=== PATIENT | female | born 1965 | race Caucasian/White ===

== ENCOUNTER 2017-10-15 14:03 | Inpatient (IN) | payer OTHER ==
[~2017-10-15] VITALS: Ht 157.5 cm; Wt 54.2 kg
--- NOTE | ~2017-10-15 | HC ---
[facility] [place] [address] CONSULTATION Name: JOHNNIE MORGAN Room #: 201-P ADM IN M.R.#: [id number] Admission: 10/15/17 Attend Phys: Michael Gray MD Discharge: Date of : 69 Report #: [id number] THIS REPORT FOR: //name// CC: Esau Lopez MD [facility] Michael Ferrara REASON FOR CONSULTATION: The patient is a 51-year-old woman who was transferred to [facility] with chest pain and possible acute coronary event. HISTORY OF PRESENT ILLNESS: This 51-year-old woman has a longstanding history of chronic obstructive pulmonary disease, which has been problematic for a number of years. She also reports she had an episode of congestive heart failure associated with exacerbation of COPD. She was admitted to [facility] [place] for chest pain, shortness of breath as well as sinus tachycardia. She had an elevated troponin and D-dimer and was placed on heparin drip at time of transfer. She was admitted to [facility] and was seen by Dr. Esau Lopez earlier today. His dictated consult is not available yet. However, I spoke with the nurse and she tells me that he reported to her that he does not believe this is a cardiac event and that he consider outpatient stress testing, but no need for further cardiac intervention at this point in time. The patient reports that her chest pain initially was substernal. She also reports that the chest pain is not completely resolved, but she is now complaining more of epigastric pain. She reported the pain has developed over the past several days. She reports a previous history of ulcer disease. She has not had previous GI bleeding. She does use ibuprofen, typically 1-2 per day. From what I can tell, she does not use a PPI, but she does use ranitidine daily. She had several episodes of emesis during the night and was reported that she had coffee ground emesis. She does have black stools and has been on iron therapy for at least a month. She was told she might be anemic, but she is not sure. She has never had a colonoscopy. Review of records revealed she has been anemic in the past, in 2009, she had a hemoglobin as low as 9.2. However, in July 2014, it was up to 13.9, but later dropped again. In the computer system here, her hemoglobins have generally been in the 11 range. MCV has shown a downward trend and is 80.2 today. White count is up to 17,400. PAST MEDICAL HISTORY: Chronic obstructive pulmonary disease, she has been a longtime cigarette smoker, she had been smoking up until the time she was hospitalized; however, she said with the this time, she is going to quit. She has had degenerative joint disease and she has been on narcotics for many years. She takes about four 10/325 Percocet daily. She has been treated for allergic asthma. She has had peptic ulcer disease. PTSD and depression. PAST SURGICAL HISTORY: , tubal ligation, cholecystectomy, neck [facility] [address] [place] [address] CONSULTATION Name: JOHNNIE MORGAN Room #: 201-P [facility] IN M.R.#: [id number] Admission: 10/15/17 Attend Phys: Michael Gray MD Discharge: Date of : 69 Report #: [id number] surgery, back surgery with cage procedure. ALLERGIES: CONTRAST DYE, NORFLEX, ROCEPHIN, BACTRIM, THEOPHYLLINE, SULFA CONTAINING ANTIBIOTICS, SHELLFISH, CORN, and APPLE. USUAL HOME MEDICINES: Include ProAir HFA 2 puffs every 4 hours, Fosamax 70 mg weekly, alprazolam 1 mg 3 times daily, Claritin 5 mg daily, transdermal nicotine patch 40 mg daily, Patanol one drop daily as needed, ondansetron 4 mg every 8 hours as needed, Percocet 10/325 one every 6 hours, Spiriva handheld inhaler, and she also takes ranitidine 150 mg twice daily. FAMILY HISTORY: No family history of colon cancer. SOCIAL HISTORY: Long-term cigarette smoker. She is single and has one child, who is in good health. She denies alcohol use. REVIEW OF SYSTEMS: GENERAL: No recent change in weight, fever, or chills. CENTRAL NERVOUS SYSTEM: No focal weakness, numbness, loss of conscious, seizures, or strokes. ENT: No change in vision, hearing or sores in the mouth. PULMONARY: Chronic lung disease with cough. No history of tuberculosis. CARDIOVASCULAR: She has had congestive heart failure in the past. GASTROINTESTINAL: Recent nausea, vomiting, and hematemesis. She had been on heparin drip. She does take nonsteroidals. She has also been on Fosamax. GENITOURINARY: Without dysuria, pyuria, kidney stones, kidney tract infections. MUSCULOSKELETAL: Chronic back and neck pain. SKIN: Without rashes. PSYCHIATRIC: Treated for depression and PTSD. ENDOCRINE: Not aware of diabetes or thyroid problems. HEMATOLOGIC: Hematemesis on admission. No malignancies. PHYSICAL EXAMINATION: GENERAL: The patient is a well-developed, well-nourished, somewhat anxious woman, in no acute distress. She is currently on 1-2 liters of oxygen. VITAL SIGNS: Blood pressure 125/99. HEENT: Anicteric. Pupils are equal and round. Oropharynx clear. NECK: Supple. CHEST: Clear. PULMONARY: Chest with good breath sounds throughout. Occasional slight expiratory wheeze. Breath sounds are equal. CARDIOVASCULAR: Regular rate and rhythm, normal S1 and S2. ABDOMEN: Mildly distended, soft. Moderate epigastric tenderness to deep palpation. No rebound or rigidity. She has benign abdomen. No mass lesions noted. RECTAL: Not done. [facility] [address] [place] [address] CONSULTATION Name: JOHNNIE MORGAN Room #: 201-P ADM IN [facility].#: [id number] Admission: 10/15/17 Attend Phys: Michael Gray MD Discharge: Date of : 69 Report #: [id number] EXTREMITIES: Without cyanosis, clubbing, or edema. NEUROLOGIC: Oriented to person, place, and time. Moves all 4 extremities well. LABORATORY DATA: White count was 13,000 yesterday, up to 17.4 today. Hemoglobin stable at 11.4. INR 1, PTT of 56.6, she had been on heparin. Electrolytes: Potassium diminished at 3.2, BUN of 8, creatinine is 0.6, calcium 81, glucose 176. Bilirubin 0.1, AST and ALT are normal, alkaline phosphatase slightly elevated at 145. Troponin 1.01. BNP of 212. RADIOLOGIC: She had a CT of the chest with PE protocol, mild patchy areas of infiltrate scattered throughout the periphery of the lung, no filling defects, small mediastinal adenopathy, multiple compression fractures in the spine with previous vertebroplasty, previous cholecystectomy, there is some subcutaneous gas and edema in the right lower neck and anterior chest wall. ASSESSMENT: 1. Atypical chest pain. 2. Hematemesis. 3. Nausea and vomiting. 4. Epigastric pain. 5. History of peptic ulcer disease. 6. Use of nonsteroidals. 7. Mild anemia, chronic. 8. Chronic obstructive pulmonary disease. 9. Chronic pain, daily use of narcotics. 10. Depression and post-traumatic stress disorder. COMMENT: Atypical chest pain. She does have abdominal pain and does use nonsteroidals and has history of disease. No further intervention planned by cardiovascular service while here in the hospital. She had hematemesis while on heparin. She has not had significant drop in hemoglobin. Pulmonary issues noted. RECOMMENDATIONS: 1. PPI. 2. Consider upper endoscopy in the morning depending on pulmonary status. 3. Chest x-ray regarding subcutaneous emphysema. 4. Monitor hemoglobin. <ELECTRONICALLY SIGNED> By: Michael Ackerman MD 10/19/17 0738 1155 1440 Michael Akcerman MD /nt
--- NOTE | ~2017-10-15 | HC ---
[facility] [address] [address] CONSULTATION Name: JOHNNIE MORGAN Room #: 201-P [facility] IN M.R.#: [id number] Admission: 10/15/17 Attend Phys: Michael Gray MD Discharge: Date of : 69 Report #: [id number] THIS REPORT FOR: //name// CC: Michael Ferrara REASON FOR CONSULTATION: Tachycardia and elevated troponin. HISTORY OF PRESENT ILLNESS: The patient is a 51-year-old woman with chronic pain syndrome, recent back surgery and 3 days of fevers, chills, upper back and chest pain and associated with nausea, vomiting, and diarrhea. She has been out of her OxyContin 4-5 days and thinks that she is going through narcotic withdrawal. Since her stay, she has not been able to keep any medications or fluids down. She had intractable nausea and vomiting. She has had subjective fevers and chills. In this setting, a troponin was ordered and mildly elevated at 1.0. I was asked to see her in this regard. Her chest pain comes from the mid portion of the back at the site of her recent back surgery. She denies orthopnea or paroxysmal nocturnal dyspnea. She has audible wheezing. She does see Dr. Garcia for her significant COPD. She was placed on aspirin and intravenous heparin, although with what appears to be coffee-ground emesis, her anticoagulant was recently discontinued. ALLERGIES: Include SHELLFISH, SULFA, THEOPHYLLINE, BACTRIM, ROCEPHIN, and IVP DYE. MEDICATIONS: Include alprazolam, oxycodone, albuterol, and nicotine patch. PAST MEDICAL HISTORY: Medical records have been reviewed and include a history of cholecystectomy, tubal ligation, appendectomy, recent back surgery, remote vertebroplasty, and COPD. SOCIAL HISTORY: Smoker, the past 30 years, 1-pack a day. FAMILY HISTORY: Notable for premature coronary artery disease. REVIEW OF SYSTEMS: All systems negative except as that noted above. PHYSICAL EXAMINATION: GENERAL: Reveals a pleasant woman, she is alert, she describes nausea, abdominal pain, and wheezing. VITAL SIGNS: Blood pressure is 137/104, heart rate of 125 and regular, she is afebrile at 98.2 degrees, 5 feet 2 inches tall, and 123 pounds. HEENT: There are neither xanthelasma, subcutaneous xanthomata, oral mucosal or digital cyanosis or kyphoscoliosis present. CHEST: Reveals diffuse expiratory wheezes. CARDIAC: Reveals tachycardic, regular rate and rhythm with normal S1, S2. ABDOMEN: Soft, distended, no rebound. [address] [address] CONSULTATION Name: JOHNNIE MORGAN Room #: 201-P [facility] IN M.R.#: [id number] Admission: 10/15/17 Attend Phys: Michael Gray MD Discharge: Date of : 69 Report #: [id number] EXTREMITIES: Without cyanosis, clubbing, or edema. Radial pulses are 2+. NEUROLOGIC: She is alert with a nonfocal exam. LABORATORY DATA: Sodium 137, potassium 3.2, creatinine 0.6, and glucose 142. Troponin 1.0. White count 17,000, hemoglobin 11, hematocrit 35, and platelet count 360. Chest x-ray demonstrates patchy area of minor infiltrate, no pulmonary emboli, multiple compression fractures seen, extensive surgical changes of the spine. EKG, sinus tachycardia, poor septal R-wave progression, nonspecific T-wave abnormality. IMPRESSION: 1. Chronic obstructive pulmonary disease exacerbation. 2. Nausea, vomiting, diarrhea; abdominal pain, possible hematemesis. 3. Chronic back pain, probable narcotic withdrawal. 4. Small troponin elevation, suspect type 2 myocardial infarction (supply demand mismatch) in the setting of chronic obstructive pulmonary disease, narcotic withdrawal, gastrointestinal bleeding, febrile illness. RECOMMENDATIONS: 1. IV beta blockade. 2. Stop anticoagulants. Medical therapy for coronary artery disease. In the absence of angina or ischemic symptoms, I would consider outpatient stress testing, at this point the antiplatelets and anticoagulants remain relatively contraindicated. I have discussed these issues with the patient. Thank you for asking me to participate in her care. <ELECTRONICALLY SIGNED> By: Esau Lopez MD, FACC 10/18/17 0853 0836 1138 Esau Lopez MD, FACC /nt
--- NOTE | ~2017-10-15 | P ---
[facility] [place] [address] [address] [place] [address] PROCEDURE REPORT Name: JOHNNIE MORGAN Room #: 201-P [facility] IN .R.#: [id number] Admission: 10/15/17 Attend Phys: Michael Gray MD Discharge: Date of : 69 Report #: [id number] THIS REPORT FOR: //name// CC: Inpatient Chart Michael Ferrara MD PROCEDURE: EGD with biopsies and brushings. Patient of Dr. Gray and Dr. Razia Ferrara. INDICATION FOR PROCEDURE: This patient has had a productive cough and chest pain, substernal, that is noncardiac in nature. She has been exposed to her mother recently who had a cold and chills and fevers and the patient then developed chills and fevers as well. She complains of uncontrolled gastroesophageal reflux symptoms while taking Zantac 150 mg p.o. b.i.d. She has had no appetite for several days and has not eaten. She had diarrhea prior to admission, but that apparently stopped. She had an episode of some melanotic stools, but has been taking iron sulfate. She complained of nausea and vomiting for the past several days along with the substernal chest pain. She has diffuse upper abdominal tenderness as well. We are asked to evaluate her for possible noncardiac etiologies of her chest pain. Informed consent for this procedure was obtained prior to the administration of any medication. The risks of the procedure, which include bleeding, perforation, infection, complications of sedation and the possibility I could miss something have been explained to the patient and she has indicated her consent by signing. Propofol was slowly titrated before and during this procedure for patient comfort by the Anesthesia Service. The Welcaren upper videoscope was introduced through the upper esophageal sphincter and advanced under direct visualization to the descending duodenum. Findings are noted on withdrawal of the scope. The duodenal mucosa appears normal throughout its entirety. Pylorus, normal mucosa. Antrum, some mild erythema is noted in the antrum of the stomach. Body, normal mucosa. Cardia and fundus, normal mucosa. Retroflex view did not reveal any abnormalities. The scope was withdrawn to the esophagus. The Z-line appears to be appropriately located at the top of the gastric folds and appears normal; however, there is an exudative esophagitis noted through almost the entire esophagus except for the proximal few centimeters. Brushings were obtained for CORA prep from this exudative material and biopsies were obtained x 3 from the distal esophagus to evaluate for possible Lisha, possible Guerrero's ectopic mucosa, possible eosinophilic esophagitis and other abnormalities that may be visible microscopically. Most proximal few centimeters of the esophagus appeared normal. The scope was withdrawn. The patient went to the [address] [address] PROCEDURE REPORT Name: JOHNNIE MORGAN Room #: 201-P [facility] IN M.R.#: [id number] Admission: 10/15/17 Attend Phys: Michael Gray MD Discharge: Date of : 69 Report #: [id number] area in stable condition. She tolerated the procedure well. IMPRESSION: 1. Mild antral erythema. 2. Diffuse exudative esophagitis biopsied and brushed as above. RECOMMENDATIONS: To await the biopsies and brushings. We will start her on Protonix 40 mg 1 p.o. q. 12 hours. We will start her on a soft diet as tolerated. I note that she has had several vertebral fractures on CT scan that was done recently. I do not know if this is secondary to osteoporosis or if perhaps she has a metastatic type of disease process, but further workup of these areas will probably be necessary. Thank you very much once again for allowing me to participate in her care, Dr. Gray. <ELECTRONICALLY SIGNED> By: Jessica Fabian DO 10/18/17 1353 1109 1214 Jessica Fabian DO /nt
--- NOTE | ~2017-10-15 | EKG ---
[place] [address] [facility] [place] [employer] [place] [address] ELECTROCARDIOGRAM REPORT Name: JOHNNIE MORGAN Room #: 201-P ADM IN M.R.#: [id number] Admission: 10/15/17 Attend Phys: Michael Gray MD Discharge: Date of : 69 Report #: [id number] THIS REPORT FOR: //name// [facility] Test Date: 2017-10-17 Test Time: 06:05:28 Pat Name: JOHNNIE MORGAN Department: Room: 201 P Gender: F Loss Prevention Specialist: JONA : 1965 Requested By: Esau Lopez Order Number: [id number] MD: Esau Lopez Measurements Intervals [place] Rate: 102 P: 46 WV: 135 QRS: 71 QRSD: 66 T: 45 QT: 401 QTc: 523 Interpretive Statements Sinus tachycardia Low voltage, extremity leads Anteroseptal infarct, old Prolonged QT interval Compared to ECG 08/17/2014 07:55:32 Prolonged QT interval now present Electronically Signed On 10-17-2017 9:30:27 MANAGEMENT ACCOUNTS MANAGER by Esau Lopez [email or web address] <ELECTRONICALLY SIGNED> By: Esau Lopez MD, [facility] 10/17/17 6530 4 Esau Lopez MD, [facility] /EPI
--- NOTE | ~2017-10-15 | S ---
[facility] [address] [place] [address] SURGICAL PATH RPT PROCEDURE Name: LAYLA BAILEY Room #: 201-P ADM IN M.R.#: [id number] Admission: 10/15/17 Date of : 69 Discharge: Report #: [id number] Path Case #: [id number] PATHOLOGY REPORT COLLECTION DATE: 10/18/2017 RECEIVED DATE: 10/18/2017 SUBMITTING PHYS: Dr. Jessica Fabian OTHER PHYS: Dr. Michael Ferrara ADDENDUM REPORT (Order Date: 10/20/2017 09:58) ADDENDUM COMMENT: A properly controlled special stain is performed. GMS (block A1) - Positive for very rare yeast and pseudohyphae amongst the necroinflammatory debris. The final diagnosis remains unchanged. (CLW:pit; 10/20/2017) Professional services performed by [facility] at [facility] [address], [place] [address] Technical services performed by [facility] at [address] [place] [address], [address] [place] [address]. ELECTRONICALLY SIGNED BY: Za Arguelles M.D. DATE/TIME:10/20/2017 14:52 SPECIMEN(S) RECEIVED: A.Bx esophagus * * * * * * * * * * * * FINAL DIAGNOSIS: "BX esophagus", biopsy: - Predominantly necroinflammatory debris consistent with ulcer bed. - Minimal / scant viable squamous epithelium with reactive changes; no glandular epithelium, intestinal metaplasia or dysplasia seen. (see comment) (CLW:rian; 10/19/2017) COMMENT: No intraepithelial eosinophils are identified within the limited, scant viable squamous epithelium. A fungal stain is pending and will be reported as an addendum. (CLW:rian; 10/19/2017) PATHOLOGIST: Za Arguelles M.D. [facility] [address] [place] [address] SURGICAL PATH RPT PROCEDURE Name: LAYLA BAILEY Room #: 201-P [facility] IN .R.#: [id number] Admission: 10/15/17 Date of : 69 Discharge: Report #: [id number] Path Case #: [id number] REPORT ELECTRONICALLY SIGNED BY: Za Arguelles M.D. DATE/TIME: 10/19/2017 15:16 * * * * * * * * * * * * GROSS PATHOLOGY: Received in formalin labeled "Layla Bailey, BX esophagus," are 2 segments of gaitan soft tissue measuring 0.7 x 0.3 x 0.2 cm in aggregate dimensions and ranging from 0.3 to 0.4 cm in maximum dimension. The specimen is submitted entirely in cassette A1. (TSD; 10/18/2017) CLINICAL HISTORY: Pre-OP DX: Abdominal pain Post-OP DX: Ulcerated esophagitis Rule out ulcer and eosinophilic esophagitis INITIAL CPT CODE(S): A; 26436, 15138 Professional services performed by [facility] at [facility] [employer] [address], [place] [address] Technical services performed by [facility] at [address] [place] [address], [address], [place] [address]. [facility] [address] [place] [address] PHONE: [phone] DIRECTOR: Richard Clinton M.D. * * * END OF REPORT * * *
--- NOTE | ~2017-10-15 | EKG ---
[address] [place] [address] ELECTROCARDIOGRAM REPORT Name: JOHNNIE MORGAN Room #: 201-P ADM IN M.R.#: [id number] Admission: 10/15/17 Attend Phys: Michael Gray MD Discharge: Date of : 69 Report #: [id number] THIS REPORT FOR: //name// [facility] Test Date: 2017-10-18 Test Time: 08:51:34 Pat Name: JOHNNIE MORGAN Department: Room: 201 P Gender: F Cotton Cleaner: Nik BURGESS : 1965 Requested By: Esau Lopez Order Number: [id number] MD: Naeem Justin Measurements Intervals [place] Rate: 92 P: 44 [place]: 136 QRS: 77 QRSD: 78 T: QT: 499 QTc: 618 Interpretive Statements Sinus rhythm Low voltage, extremity leads Nonspecific T abnormalities, lateral leads Compared to ECG 10/17/2017 06:05:28 T-wave abnormality now present Sinus tachycardia no longer present Myocardial infarct finding no longer present Electronically Signed On 10-18-2017 15:08:36 SPINNING MACHINE OPERATOR by Naeem Justin [email or web address] <ELECTRONICALLY SIGNED> By: Naeem Justin MD 10/18/17 1508 0851 0851 Naeem Justin MD /EPI
--- NOTE | ~2017-10-15 | HC ---
[facility] [place] [address] [place] [address] CONSULTATION Name: JOHNNIE MORGAN Room #: 201-P [facility] IN M.R.#: [id number] Admission: 10/15/17 Attend Phys: Michael Gray MD Discharge: 10/20/17 Date of : 69 Report #: [id number] THIS REPORT FOR: //name// CC: Michael Gray MD [facility] DATE OF SERVICE: 10/16/2017 REFERRING PROVIDER: Michael Gray MD REASON FOR CONSULTATION: Pulmonary infiltrates, hypoxemia and chest pain. HISTORY OF PRESENT ILLNESS: Our group was asked to see the patient in consultation while hospitalized at [facility]. A 51-year-old woman with past medical history significant for severe COPD and ongoing tobacco abuse, had been having some increasing shortness of breath, tachycardia, cough productive of white sputum, fevers and chills at home, presented to the Emergency Department due to chest pains. The patient ran out some of her pain medications 2 days ago. The patient started developing worsening chest pain and elevated D-dimer and subsequently transferred here for further workup and management. CT scan of the chest PE protocol, did not show any pulmonary emboli, but did show predominantly upper lobe, left greater than right infiltrates consistent with multilobar pneumonia. The patient is currently resting in bed on low flow supplemental oxygen. The patient also has been complaining of epigastric pain and has a history of peptic ulcer disease, undergoing evaluation by Gastroenterology. ALLERGIES: INCLUDE IV CONTRAST, ORPHENADRINE. PAST MEDICAL HISTORY: 1. Severe COPD requiring low flow supplemental oxygen. 2. Ongoing tobacco abuse. 3. Chronic pain. 4. Recent back surgery with dipika placement. 5. Severe osteoporosis. OUTPATIENT MEDICATIONS: Include Claritin, Percocet, Xanax, Spiriva, albuterol inhaler, nicotine patch, Symbicort. SOCIAL HISTORY: The patient is an active smoker. No significant alcohol consumption. Disabled. FAMILY HISTORY: Negative for any significant pulmonary disease. REVIEW OF SYSTEMS: [facility] [address] [place] [address] CONSULTATION Name: JOHNNIE MORGAN Room #: 201-P [facility] IN M.R.#: [id number] Admission: 10/15/17 Attend Phys: Michael Gray MD Discharge: 10/20/17 Date of : 69 Report #: [id number] CONSTITUTIONAL: No fever noted, but chills and sweats noted. ENT: No upper respiratory congestion, rhinorrhea or dysphagia. CARDIOVASCULAR: Chest pain as described in HPI. GASTROINTESTINAL: As described in HPI, some nausea and inability to take oral intake. GENITOURINARY: No dysuria, no frequency or hematuria. INTEGUMENT: Denies any rash. MUSCULOSKELETAL: No new joint pains or swelling. PHYSICAL EXAMINATION: VITAL SIGNS: Afebrile, pulse 110s, respiratory rate 20, blood pressure 123/89, oxygen saturation 93% on 2.5 liters nasal cannula. GENERAL: This is a middle-aged woman in no distress. ENT: Clear oropharynx. No thrush. NECK: Supple, no lymphadenopathy. LUNGS: Some inspiratory crackles noted bilaterally with expiratory wheezes. CARDIOVASCULAR: Heart was tachycardic, but regular. No murmurs noted. ABDOMEN: Soft, nontender, no masses, no hepatosplenomegaly noted. EXTREMITIES: Warm, 2+ pulses, no edema. INTEGUMENT: No rash was seen. LABORATORY DATA: Chemistry profile normal except for mildly elevated glucose 176. Alkaline phosphatase mildly elevated at 145. Troponin 1.01. White blood cell count 17,000; hemoglobin 11; hematocrit 35; platelet count 360. TSH 1.57. No arterial blood gas. Chest CT as described in HPI. IMPRESSION: 1. Multilobar pneumonia consistent with community-acquired pneumonia; however, given recent hospital stay, some concern for healthcare-associated organisms should be considered, possibly influenza. 2. Pmvmu-ay-jpbnnmb hypoxemic respiratory failure. 3. Chronic obstructive pulmonary disease with acute exacerbation. 4. Ongoing tobacco abuse. 5. Chest pain, likely related to pneumonia, possibly due to gastrointestinal symptoms with prior history of peptic ulcer disease. 6. Leukocytosis. SUGGESTIONS: 1. Continue with Levaquin. 2. Systemic steroid with taper. 3. Continue with bronchodilators. 4. Sputum and blood culture. 5. Nasal swab for respiratory viral panel and influenza screen. 6. GI evaluation. [address] [address] CONSULTATION Name: JOHNNIE MORGAN Room #: 201-P [facility] IN M.R.#: [id number] Admission: 10/15/17 Attend Phys: Michael Gray MD Discharge: 10/20/17 Date of : 69 Report #: [id number] 7. Continuous oximetry. 8. Additional recommendations to follow. We will follow along with you. <ELECTRONICALLY SIGNED> By: Rigoberto Hernandez MD 10/20/17 1726 1405 1742 Rigoberto Hernandez MD /nt
--- NOTE | ~2017-10-15 | EKG ---
[address] [place] [address] ELECTROCARDIOGRAM REPORT Name: JOHNNIE MORGAN Room #: 201-P ADM IN M.R.#: [id number] Admission: 10/15/17 Attend Phys: Michael Gray MD Discharge: Date of : 69 Report #: [id number] THIS REPORT FOR: //name// [facility] Test Date: 2017-10-18 Test Time: 15:01:45 Pat Name: JOHNNIE MORGAN Department: Room: 201 P Gender: F Airplane Mechanic: Barb GARZA : 1965 Requested By: Petrona Crystal Order Number: [id number] MD: Naeem Justin Measurements Intervals Cameron Rate: 103 P: 40 CA: 135 QRS: 79 QRSD: 88 T: -27 QT: 364 QTc: 477 Interpretive Statements Sinus tachycardia Low voltage, extremity leads Nonspecific T abnormalities, lateral leads Compared to ECG 10/17/2017 06:05:28 T-wave abnormality now present Myocardial infarct finding no longer present Prolonged QT interval no longer present Electronically Signed On 10-18-2017 16:21:32 DIRECTOR OF EMAIL MARKETING by Naeem Justin [email or web address] <ELECTRONICALLY SIGNED> By: Naeem Justin MD 10/18/17 1621 1501 1501 Naeem Justin MD /EPI
--- NOTE | ~2017-10-15 | CATHLAB ---
[facility] [address] [place] [address] INVASIVE PROCEDURE REPORT Name: JOHNNIE MORGAN Room #: 201-P [facility] IN ..#: [id number] Admission: 10/15/17 Attend Phys: Michael Gray, Discharge: Date of : 69 Date of Service: 10/19/17 1122 Report #: [id number] THIS REPORT FOR: //name// APPROVED REPORT Patient Details Patient Status: In-Patient Room #: The patient is a 51 year-old female Event Personnel Esau Lopez Policy Loan Calculator, Deena Shelton, Elizabeth Vasquez Penny, Wes RN, Luzma Guerrero RN clothes ironer Performed Art Access - R femoral artery* Left Heart Cath w/or w/o Coronaries [id number] [facility] [address] Initial Mod Sed Same Phys/QHP Gr5y [id number] Hemostasis w/ Mynx Indication Abnormal ECG, Non-STEMI , Cardiomyopathy Procedure Narrative The patient was brought urgently to the Cardiac Catheterization Laboratory and was prepped and draped in a sterile manner. The Left Groin^ was infiltrated with 1% Lidocaine subcutaneous anesthesia. A PINNACLE 6FR Sheath #[id number] sheath was inserted into the RFA^. Coronary angiography was performed using coronary diagnostic catheters. The right coronary system was accessed and visualized with a JR 4 catheter. The left coronary system was accessed and visualized with a JL 4 catheter. The left ventricle was accessed and visualized with a Pigtail catheter. Left ventricular/Aortic Valve gradient assessed via catheter pullback. Left ventriculogram was performed in RDZ projection. Closure device was deployed with a 6 Fr . The patient tolerated the procedure well and there were no complications associated with the procedure. There was no hematoma. Intraoperative Conscious Sedation Sedation start time: 07:42 Case end Time: 07:53 Fentanyl 25.0 mcg Versed 1.0 mg Fluoro Time: 1.19 minutes Dose: DAP 1754.00 cGycm2 215 mGy Contrast Type and Amount: Visipaque 85 ml [facility] [address] [place] [address] INVASIVE PROCEDURE REPORT Name: JOHNNIE MORGAN Room #: 201-P [facility] IN ..#: [id number] Admission: 10/15/17 Attend Phys: Michael Gray, Discharge: Date of : 69 Date of Service: 10/19/17 1122 Report #: [id number] Diagnostic Cath Left Main Normal LAD Normal Diagonal 1 Large single diagonal branch, angiographically normal Circumflex Large, angiographically normal Right Coronary Dominant, angiographically normal Left Ventriculography The left ventricle is moderately dilated in size with contractility. The left ventricular ejection fraction is estimated to be 30%. Left ventricular wall motion abnormalities are present. There is no mitral insufficiency. Apical ballooning, best contractile function at base of heart. Findings consistent with Takutsobu cardiomyopathy Hemodynamics The aortic pressure is 141/83 mmHg with a mean of 94 mmHg. The left ventricular pressure is 115/16 mmHg with a mean of mmHg. The left ventricular end diastolic pressure is 32 mmHg. Conclusion 1. Moderately severe LV dysfunction with apical ballooning consistent with Takutsubo cardiomyopathy. EF 30% 2. Normal coronary vasculature, right dominant circulation Recommendations Smoking Cessation Aggressive Medical Therapy Medications Administered SUSAN Inhibitor (any) Beta Layla (any) Statin (any) Cardiac Rehabilitation Referral Smoking Cessation <ELECTRONICALLY SIGNED> By: Esau Lopez MD, FACC 10/19/17 112 21 21 Esau Lopez MD, FACC /INF
--- NOTE | ~2017-10-15 | CNG ---
[facility] [address] [place] [address] CYTO-NONGYN REPORT PROCEDURE Name: LAYLA BAILEY Room #: 201-P DIS IN M.R.#: [id number] Admission: 10/15/17 Date of : 69 Discharge: 10/20/17 Report #: [id number] Path Case #: [id number] CYTOPATHOLOGY REPORT COLLECTION DATE: 10/18/2017 RECEIVED DATE: 10/18/2017 SUBMITTING PHYS: Dr. Jessica Fabian OTHER PHYS: Dr. Michael Gray ADDENDUM REPORT (Order Date: 10/20/2017 15:25) ADDENDUM COMMENT: A properly controlled special stain is performed on a ThinPrep slide. GMS (ThinPrep) - Very rare yeast identified The final diagnosis remains unchanged. (CLW:rian; 10/20/2017) Professional services performed by [facility] at [facility] [address] [place] [address] Technical services performed by [facility] at [address] [place] [address], [address] [place] [address]. ELECTRONICALLY SIGNED BY: Za Arguelles M.D. DATE/TIME:10/21/2017 14:39 CLINICAL HISTORY: Abdominal pain, ulcerated esophagitis. See also [id number]. SPECIMEN(S) RECEIVED: A.Esophageal brushing * * * * * * * * * * * * FINAL DIAGNOSIS: Esophageal brushing: - No malignant epithelial cells identified. -Squamous epithelial cells identified in a marked acute inflammatory cell background. COMMENT: A fungal stain is pending and will be reported as addendum. Please see also the esophageal biopsy ([id number]). Clinical and endoscopic correlation is recommended. (CLW:; 10/19/2017) PATHOLOGIST: Za Arguelles M.D. REPORT ELECTRONICALLY SIGNED BY: Za Arguelles M.D. DATE/TIME: 10/19/2017 15:12 * * * * * * * * * * * * [facility] [place] [address] CYTO-NONGYN REPORT PROCEDURE Name: LAYLA BAILEY Room #: 201-P [facility] IN M.R.#: [id number] Admission: 10/15/17 Date of : 69 Discharge: 10/20/17 Report #: [id number] Path Case #: [id number] GROSS PATHOLOGY: A. Esophageal brushing: The specimen is labeled "Layla Bailey" and consists of a brush tip in fixative. One ThinPrep slide was prepared. (clt 10.18.2017) EXTRACT WRINGER(S): JOSE M Gee([facility]) INITIAL CPT CODE(S): A; 95879, 17125 Professional services performed by [facility] at [address] , [place] [address] Technical services performed by [facility] at [address] [place] [address], [address], [place] [address]. CC: Dr. Josias Randle [facility] [address], [address] [place] [address] PHONE: [phone] DIRECTOR: Richard Clinton M.D. * * * END OF REPORT * * *
--- NOTE | ~2017-10-15 | 2DMMODE ---
[facility] [address] [place] [address] 2 D/M-MODE ECHOCARDIOGRAM Name: JOHNNIE MORGAN Room #: 201-P [facility] IN [facility].#: [id number] Admission: 10/15/17 Attend Phys: Michael Gray, Discharge: Date of : 69 Date of Service: 10/17/17 1144 Report #: [id number] THIS REPORT FOR: //name// APPROVED REPORT Study performed: 10/17/2017 11:12:14 EXAM: Comprehensive 2D, Doppler, and color-flow Echocardiogram Patient Location: Bedside Room #: 210 Status: routine BSA: 1.57 HR: 74 bpm BP: 135/59 mmHg Rhythm: NSR Other Information Study Quality: Good Indications Chest pain. Afib. CABG. 2D Dimensions RVDd: 31.67 mm LVEF(%): 35.92 (>50%) IVSd: 7.92 (7-11mm) LVOT Diam: 18.71 (18-24mm) LVDd: 45.92 mm PWd: 7.55 (7-11mm) Ascending Ao: 29.65 (22-36mm) LVDs: 38.04 (25-40mm) Aortic Root: 30.37 mm Butler's LVEF: 35.92 % Volumes Left Atrial Volume (Systole) Single Plane 4CH: 28.23 mL Single Plane 2CH: 38.67 mL Aortic Valve AoV Peak Barron.: 1.07 m/s AO Peak Gr.: 4.54 mmHg LVOT Max P.89 mmHg LVOT Max V: 0.85 m/s AUBREY Vmax: 2.19 cm2 Mitral Valve E/A Ratio: 1.5 MV Decel. Time: 95.41 ms MV E Max Barron.: 0.98 m/s [facility] [employer] [place] [address] 2 D/M-MODE ECHOCARDIOGRAM Name: CATHYJOHNNIE Room #: 201-P [facility] IN .R.#: [id number] Admission: 10/15/17 Attend Phys: Michael Gray, Discharge: Date of : 69 Date of Service: 10/17/17 1144 Report #: [id number] A Barron.: 0.66 m/s MV PHT: 27.67 ms IVRT: 58.82 ms Pulmonary Valve PV Peak Barron.: 0.55 m/s PV Peak Gr.: 1.21 mmHg Pulmonary Vein P Vein S: 0.63 m/s P Vein A: 0.48 m/s P Vein D: 0.66 m/s P Vein S/D Ratio: 0.95 Tricuspid Valve TR Peak Barron.: 2.88 m/s RAP Estimate: 5.00 mmHg TR Peak Gr.: 33.20 mmHg PA Pressure: 38.00 mmHg Left Ventricle The left ventricle is normal size. There is normal left ventricular wall thickness. Left ventricular systolic function is severely decreased. Best contractile function occurred at base of heart LVEF is 30%. The left ventricular diastolic function is normal. Right Ventricle The right ventricle is normal size. The right ventricular systolic function is low normal. Atria The left atrium size is normal. The right atrium size is normal. Aortic Valve The aortic valve is normal in structure. No aortic regurgitation is present. There is no aortic valvular stenosis. Mitral Valve The mitral valve is normal in structure. Moderate mitral regurgitation. Tricuspid Valve The tricuspid valve is normal in structure. Mild tricuspid regurgitation. Estimated PAP is 35-40mmHg. Pulmonic Valve The pulmonary valve is normal in structure. Trace pulmonic regurgitation. [facility] [address] [place] [address] 2 D/M-MODE ECHOCARDIOGRAM Name: JOHNNIE MORGAN Room #: 201-P [facility] IN .R.#: [id number] Admission: 10/15/17 Attend Phys: Michael Gray, Discharge: Date of : 69 Date of Service: 10/17/17 1144 Report #: [id number] Great Vessels The aortic root is normal in size. The ascending aorta is normal in size. IVC is normal in size and collapses >50% with inspiration. Pericardium There is no pericardial effusion. <Conclusion> Left ventricular systolic function is severely decreased. Best contractile function occurred at base of heart LVEF is 30%. Appearance could be suggestive of Takutsubo cardiomyopathy The aortic valve is normal in structure. No aortic valvular stenosis or insufficiency. The mitral valve is normal in structure. Moderate mitral regurgitation. Mild tricuspid regurgitation. Estimated pulmonary artery pressure of 35-40mmHg. There is no pericardial effusion. <ELECTRONICALLY SIGNED> By: Esau Lopez MD, FACC 10/17/17 1144 1144 1144 Esau Lopez MD, FACC /INF
[~2017-10-15 14:03] MED LIST: ADVAIR 250-501 EACH IH; ADVAIR HFA115 MCG/21 INH; ALDACTONE25 MG PO; ALEVE220 MG PO; ASTEPRO205.5 MCG/ NASAL; B COMPLEX-VITA1 EACH PO; BACLOFEN 10MG T10 M1 PO; BACLOFEN 10MG T10 MG PO; BACLOFEN20 MG PO; BENTYL 10 MG CA10 MG PO; BENTYL10 MG PO; BUSPAR30 MG PO; CEFDINIR PO; CLONIDINE0.1 PO; COLACE100 MG; COREG PO; COZAAR 25 MG TA25 MG PO; DICLOFENAC PO; DIFLUCAN150 MG; FLEXERIL PO; FOSAMAX 70 MG T70 MG PO; HYDROCODON-ACE1 EAC5 PO; HYDROCODON-ACE1 EAC7; LANOXIN 0.120.125 M1 PO; LEVAQUIN 500 M500 M2; MULTIVITAMINS PO; NABUMETONE 500500 M1 PO; NEXIUM 40 MG CA40 M1 PO; NICOTINE TRANSD14 M1 TRANSDERM; ONDANSETRON HCL4 M2 PO; OPANA ER20 M1 PO; OXYCONTIN10 M1 PO; PATADAY2.5 ML GTT; PATADAY2.5 ML OPHTHALMIC; PATANOL5 ML OPHTHALMIC; PERCOCET 10-321 EACH PO; PREDNISONE 10 M10 M1; PRILOSEC40 MG PO; PRISTIQ50 MG PO; PROAIR HFA8.5 GM INH; PROZAC 20 MG20 M1 PO; PROZAC20 MG/5 ML PO; PROZAC40 MG PO; SINGULAIR 10 MG10 M1 PO; SPIRIVA INH; SYMBICORT160 MCG/4. INH; VALIUM2 MG PO; VALIUM5 MG PO; VENTOLIN HFA INH8 GM IH; VICODIN PO; VITAMIN D400 UNI1 PO; VITAMINC500 PO; XANAX XR1 MG PO; XANAX1 MG PO; ZANAFLEX4 M1 PO; ZYRTEC10 M2 PO; [UNRECOGNIZED DRUG - OTHER] PO
[2017-10-15] MEDS ORDERED: [UNRECOGNIZED DRUG - OTHER] (17:18)
[2017-10-15] MEDS ORDERED: PATANOL5 ML (17:19)
[2017-10-15] MEDS ORDERED: CLARITIN5 MG (17:20)
[2017-10-15 18:04] VITALS: BP 109/75
[2017-10-15 19:07] VITALS: BP 120/88
[2017-10-15 19:07] LABS: HEMOGLOBIN 11.5 gm/dL (12.0-15.0); MCH 26.5 pg (26.0-34.0); MCV 80.4 fL (80.0-100.0); RBC 4.35 mil/uL (4.20-5.00); RDW 16.1 % (10.5-14.5)
[2017-10-15 19:22] LABS: ALBUMIN 2.8 g/dL (3.4-5.0); CALCIUM 8.5 mg/dL (8.5-10.1); CREATININE 0.6 mg/dL (0.6-1.0); POTASSIUM 3.2 mmol/L (3.5-5.1); TOTAL BILIRUBIN 0.1 mg/dL (<0.1-1.0); TOTAL PROTEIN 6.6 g/dL (6.4-8.2)
[2017-10-15 20:21] LABS: PROTIME 9.3 Seconds (9.3-11.4)
[2017-10-15 23:33] VITALS: BP 132/92
[2017-10-16 00:38] LABS: HEMATOCRIT 35.1 % (37.0-47.0); HEMOGLOBIN 11.4 gm/dL (12.0-15.0); MCH 26.2 pg (26.0-34.0); MCHC 32.7 g/dL (28.0-37.0); MCV 80.2 fL (80.0-100.0); PLATELET COUNT 360 thou/uL (150-400); RBC 4.37 mil/uL (4.20-5.00); WBC 17.4 thou/uL (4.0-11.0)
[2017-10-16 00:45] LABS: CALCIUM 8.1 mg/dL (8.5-10.1); CREATININE 0.6 mg/dL (0.6-1.0); POTASSIUM 3.2 mmol/L (3.5-5.1)
[2017-10-16 01:03] LABS: ABSOLUTE NEUTROPHILS 15.7 thou/uL (1.4-8.2)
[2017-10-16 03:33] VITALS: BP 137/104
[2017-10-16 07:20] VITALS: BP 125/99
[2017-10-16 11:05] VITALS: BP 123/89
[2017-10-16 15:20] VITALS: BP 101/79
[2017-10-16 19:04] VITALS: BP 110/84
[2017-10-17 04:10] VITALS: BP 123/96
[2017-10-17 04:17] LABS: HEMATOCRIT 31.6 % (37.0-47.0); HEMOGLOBIN 10.3 gm/dL (12.0-15.0); MCH 26.5 pg (26.0-34.0); MCHC 32.6 g/dL (28.0-37.0); MCV 81.3 fL (80.0-100.0); PLATELET COUNT 338 thou/uL (150-400); RBC 3.88 mil/uL (4.20-5.00); RDW 15.9 % (10.5-14.5); WBC 12.8 thou/uL (4.0-11.0)
[2017-10-17 04:25] LABS: CALCIUM 8.1 mg/dL (8.5-10.1); CREATININE 0.6 mg/dL (0.6-1.0)
[2017-10-17 04:26] LABS: POTASSIUM 4.1 mmol/L (3.5-5.1)
[2017-10-17 08:00] LABS: ABSOLUTE NEUTROPHILS 11.5 thou/uL (1.4-8.2); ATYPICAL LYMPHS 2 %
[2017-10-17 08:01] LABS: POIKILOCYTOSIS SLIGHT; POLYCHROMASIA SLIGHT
[2017-10-17 08:22] LABS: CHOLESTEROL 156 mg/dL (<200); HDL CHOLESTEROL 33 mg/dL (>40); LDL CHOLESTEROL 87 mg/dL (<100); TC:HDL 4.7 Ratio (Not establshd); TRIGLYCERIDE 180 mg/dL (<150); VLDL 36 mg/dL (<40)
[2017-10-17 11:11] VITALS: BP 116/88
[2017-10-17 15:47] VITALS: BP 111/78
[2017-10-17 18:59] VITALS: BP 111/82
[2017-10-18 03:17] LABS: HEMATOCRIT 32.2 % (37.0-47.0); HEMOGLOBIN 10.3 gm/dL (12.0-15.0); MCH 26.4 pg (26.0-34.0); MCV 82.4 fL (80.0-100.0); RBC 3.91 mil/uL (4.20-5.00); RDW 15.9 % (10.5-14.5); WBC 9.6 thou/uL (4.0-11.0)
[2017-10-18 03:26] VITALS: BP 93/68
[2017-10-18 03:26] LABS: CALCIUM 8.3 mg/dL (8.5-10.1); CREATININE 0.6 mg/dL (0.6-1.0); POTASSIUM 4.4 mmol/L (3.5-5.1)
[2017-10-18 08:00] VITALS: BP 98/76
[2017-10-18 11:53] VITALS: BP 106/82
[2017-10-18 15:50] VITALS: BP 105/83
[2017-10-18 19:23] VITALS: BP 109/83
[2017-10-19 03:27] LABS: HEMATOCRIT 29.4 % (37.0-47.0); HEMOGLOBIN 9.8 gm/dL (12.0-15.0); MCH 26.8 pg (26.0-34.0); MCHC 33.3 g/dL (28.0-37.0); MCV 80.4 fL (80.0-100.0); RBC 3.65 mil/uL (4.20-5.00); RDW 15.9 % (10.5-14.5); WBC 5.1 thou/uL (4.0-11.0)
[2017-10-19 03:58] LABS: CALCIUM 7.8 mg/dL (8.5-10.1); CREATININE 0.5 mg/dL (0.6-1.0); POTASSIUM 3.9 mmol/L (3.5-5.1)
[2017-10-19 04:18] VITALS: BP 87/65
[2017-10-19 07:05] VITALS: BP 92/67
[2017-10-19 07:50] VITALS: BP 131/74
[2017-10-19 11:22] VITALS: BP 105/76
[2017-10-19 15:45] VITALS: BP 107/80
[2017-10-19 20:25] VITALS: BP 113/84
[2017-10-19 23:09] LABS: ADENOVIRUS Negative (Negative); INFLUENZA A Negative (Negative); INFLUENZA B Negative (Negative); METAPNEUMOVIRUS Negative (Negative); PARAINFLUENZA 1 Negative (Negative); PARAINFLUENZA 2 Negative (Negative); PARAINFLUENZA 3 Negative (Negative); RHINOVIRUS Negative (Negative); RSV A Negative (Negative); RSV B Negative (Negative)
[2017-10-20 03:04] LABS: % SATURATION 10 % (20-39); IRON 27 ug/dL (50-170); TIBC 278 ug/dL (250-450)
[2017-10-20 04:13] VITALS: BP 99/68
[2017-10-20 07:23] VITALS: BP 121/91
[2017-10-20 11:59] VITALS: BP 121/89
[2017-10-20] MEDS ORDERED: LEVAQUIN 750 M750 MG PO (14:39)
[2017-10-20] MEDS ORDERED: NYSTATIN100000 UNI SW&SWALLOW (14:39)
[2017-10-20] MEDS ORDERED: IRON325 PO (14:40)
[2017-10-20] MEDS ORDERED: METOPROLOL SUCC25 M1 PO (14:40)
[2017-10-20] MEDS ORDERED: LIPITOR40 MG PO (14:40)
[2017-10-20] MEDS ORDERED: COZAAR 25 MG TA25 M2 PO (14:41)
[2017-10-20] MEDS ORDERED: ALDACTONE25 MG PO (14:41)
[2017-10-20] MEDS ORDERED: ASPIR 8181 MG PO (14:41)
[2017-10-20] MEDS ORDERED: CARAFATE 11 GM/10 M1 PO (14:42)
[2017-10-20] MEDS ORDERED: PERCOCET 10-321 EACH PO (14:42)
[2017-10-20] MEDS ORDERED: PROTONIX40 M1 PO (14:43)
[2017-10-20] MEDS ORDERED: PREDNISONE 10 M10 MG PO (14:43)
[2017-10-20 14:44] VITALS: BP 121/89
[2017-10-20 14:57] VITALS: BP 121/89
[2017-10-20] MEDS ORDERED: XANAX1 MG PO (15:33)
[2017-10-20 15:41] VITALS: BP 121/89
== END 2017-10-20 16:19 | disposition home or self-care (01) | DRG 871 ==
LOC: 2N 14:03 → ENTRNSPT 10-20 15:44 → EDTRNSPTSTS 10-20 15:50 → 2N 10-20 16:19
PROVIDERS: Hospitalist; Internal Medicine; Internal Medicine Endocrinology, Diabetes & Metabolism; Internal Medicine Gastroenterology; Internal Medicine Pulmonary Disease
PROC: 0DB38ZX Excision of Lower Esophagus, Via Natural or Artificial Opening Endoscopic, Diagnostic (ICD-10-PCS; principal; 2017-10-18)
PROC: B211YZZ Fluoroscopy of Multiple Coronary Arteries using Other Contrast (ICD-10-PCS; 2017-10-19)
PROC: 4A023N7 Measurement of Cardiac Sampling and Pressure, Left Heart, Percutaneous Approach (ICD-10-PCS; 2017-10-19)
PROC: B215YZZ Fluoroscopy of Left Heart using Other Contrast (ICD-10-PCS; 2017-10-19)
DX: A41.9 Sepsis, unspecified organism (principal); J96.21 Acute and chronic respiratory failure with hypoxia; J18.1 Lobar pneumonia, unspecified organism; I26.99 Other pulmonary embolism without acute cor pulmonale; J44.1 Chronic obstructive pulmonary disease with (acute) exacerbation; K92.0 Hematemesis; F11.20 Opioid dependence, uncomplicated; I50.20 Unspecified systolic (congestive) heart failure; I51.81 Takotsubo syndrome; J44.0 Chronic obstructive pulmonary disease with (acute) lower respiratory infection; G89.4 Chronic pain syndrome; M19.90 Unspecified osteoarthritis, unspecified site; D63.8 Anemia in other chronic diseases classified elsewhere; F32.9 Major depressive disorder, single episode, unspecified; F43.10 Post-traumatic stress disorder, unspecified; M81.0 Age-related osteoporosis without current pathological fracture; F17.210 Nicotine dependence, cigarettes, uncomplicated; F41.9 Anxiety disorder, unspecified; M54.9 Dorsalgia, unspecified; E87.6 Hypokalemia; K20.9 Esophagitis, unspecified; K31.89 Other diseases of stomach and duodenum; D50.9 Iron deficiency anemia, unspecified; K21.9 Gastro-esophageal reflux disease without esophagitis; Z88.2 Allergy status to sulfonamides; Z88.1 Allergy status to other antibiotic agents; Z91.013 Allergy to seafood; Z91.041 Radiographic dye allergy status; Z91.018 Allergy to other foods; Z90.49 Acquired absence of other specified parts of digestive tract; Z82.49 Family history of ischemic heart disease and other diseases of the circulatory system; Z87.11 Personal history of peptic ulcer disease; Z88.8 Allergy status to other drugs, medicaments and biological substances; Z79.899 Other long term (current) drug therapy
CPT/HCPCS: 10081; 62110; 62900

== ENCOUNTER → 2021-03-05 | Emergency (ER) | payer OTHER ==
[~2021-03-05] VITALS: Ht 160 cm; Wt 61.2 kg
[~2021-03-05] MED LIST changes: +ALPRAZOLAM 0.50.5 MG PO; +ASPIR 8181 MG PO; +CARAFATE 11 GM/10 M1 PO; +CLARITIN5 MG; +COZAAR 25 MG TA25 M2 PO; +ESOMEPRAZOLE MA40 MG PO; +FLONASE 0.05%50 MCG NARES; +GABAPENTIN600 M1 PO; +IRON325 PO; +KLOR-CON 1010 MEQ PO; +LEVALBUTER1.25 MG/0. INH; +LEVAQUIN 750 M750 MG PO; +LIPITOR40 MG PO; +LUNESTA3 MG PO; +METOPROLOL SUCC25 M1 PO; +MULTI VITAMIN1 EACH PO; +NYSTATIN100000 UNI SW&SWALLOW; +OXYCODON-ACETA1 EAC1 PO; +PATANOL5 ML; +PREDNISONE 10 M10 MG PO; +PROTONIX40 M1 PO; +SENOKOT-S1 TA2 PO; +TRELEGY ELLIPT1 EACH INH; +ZIPRASIDONE HCL20 M1 PO; +ZYRTEC-D TABLE1 EAC1 PO; +[UNRECOGNIZED DRUG - OTHER]
[2021-03-05 23:33] VITALS: BP 129/85
--- NOTE | 2021-03-10 08:18 | HC ---
[facility] [place] [address] [place] [address] CONSULTATION Name: JOHNNIE MORGAN [id number] Admission: 03/05/21 Attend Phys: Discharge: Date of : 69 Report #: [id number] THIS REPORT FOR: cc: Kaz eRis James DO Nichols, Jon C. MD ~ DOC #: [id number] Rafa Torres MD DATE OF SERVICE: 03/05/2021 REASON FOR CONSULTATION: Food impaction. HISTORY OF PRESENT ILLNESS: The patient is a 55-year-old white female transferred from [place], [place] with a prolonged food impaction. She had presented to the emergency room in [facility] following ingestion of a piece of steak at 5:00 p.m., which felt to be caught at the level of the sternal notch. She was not able to swallow any food or liquids or handle her saliva since that period of time. She received doses of glucagon at least twice with no resolution. For this reason, she was transferred to [facility]. She does not relate any previous history of food obstruction of this nature. She reports that she last underwent upper endoscopy approximately one year ago in [place] with identification of stomach ulcers and has been maintained on Nexium since that time. She also complains of intermittent gaseous discomfort and bloating that may take several days before improvement. She has multiple medical problems including COPD with continued smoking, colon polyps, depressive disorder, migraine headaches, history of bronchitis and sinusitis, chronic back pain. She has a previous history of a blood clot in her right shoulder. HOME MEDICATIONS: Albuterol inhaler, Flonase nasal spray, Geodon 20 mg twice per day, ferrous sulfate 325 mg per day, levalbuterol inhaler, Lunesta 3 mg at bedtime, multivitamins, Neurontin 600 mg per day, Nexium 40 mg each day, olopatadine eyedrops, Zofran p.r.n. every 8 hours as needed, oxycodone/acetaminophen 7.5/325 mg every 8-12 hours as needed for pain, potassium chloride 10 mEq per day, Senokot as needed, tizanidine as needed, Trelegy Ellipta inhaler 1 puff every day, Xanax 0.5 mg 3 times per day as needed and Zyrtec every 12 hours. ALLERGIES: CEFTRIAXONE, IODINE, and SULFA. PAST SURGICAL HISTORY: Include back surgery, cholecystectomy, tubal ligation, [facility] [address] [place] [address] CONSULTATION Name: JOHNNIE MORGAN Room #: REG [facility].#: [id number] Admission: 03/05/21 Attend Phys: Discharge: Date of : 69 Report #: [id number] and appendectomy. SOCIAL HISTORY: She does continue to smoke on a daily basis. Others in her home also smoke on a regular basis, making it more difficult for her to think about quitting. She occasionally drinks alcohol. REVIEW OF SYSTEMS: She denies any fevers, chills or weight loss. She has no significant shortness of breath, but does have chronic COPD. She has no chest pain. PHYSICAL EXAMINATION: GENERAL: She appears alert and in moderate distress due to recurrent attempts to regurgitate with belching. VITAL SIGNS: At 1800 included blood pressure 151/90, pulse 105, respiratory rate 17. HEENT: No cervical lymphadenopathy or crepitance at her neck. VITAL SIGNS: Heart rate and rhythm regular, without murmur. LUNGS: Clear to auscultation. ABDOMEN: Soft, nondistended with no obvious hepatosplenomegaly or palpable mass. She exhibits no focal tenderness to palpation. ASSESSMENT: 1. Prolonged food impaction with a persistent regurgitation of saliva for over 4 hours with no relief. 2. Chronic gastroesophageal reflux. 3. History of peptic ulcer disease. 4. Chronic obstructive pulmonary disease. RECOMMENDATIONS: She will be scheduled for urgent upper endoscopy for removal of food obstruction, understanding the potential risks involved. We specifically discussed the potential risks of reactions to medications, aspiration of food contents, esophageal or bleeding from the esophagus and esophageal perforation. Further recommendation, we will follow her upper endoscopy. MD IMANI Avendano/ALEAH <ELECTRONICALLY SIGNED> By: Regulo Branham MD 03/10/21 0818 2043 2352 Rafa Torres MD /nt
== END ==
LOC: ER 20:39
DX: T18.108A Unspecified foreign body in esophagus causing other injury, initial encounter (principal); J44.9 Chronic obstructive pulmonary disease, unspecified; Z98.890 Other specified postprocedural states; Z98.51 Tubal ligation status; Z90.49 Acquired absence of other specified parts of digestive tract; Z90.89 Acquired absence of other organs; Z91.018 Allergy to other foods; Z91.013 Allergy to seafood; Z88.1 Allergy status to other antibiotic agents; Z88.2 Allergy status to sulfonamides; Z91.041 Radiographic dye allergy status; W45.8XXA Other foreign body or object entering through skin, initial encounter; Y93.89 Activity, other specified; Y92.89 Other specified places as the place of occurrence of the external cause; Y99.8 Other external cause status
CPT/HCPCS: 62110; 62900